=== PATIENT | female | born 1990 | race Caucasian/White ===

== ENCOUNTER 2020-01-21 05:31 | Inpatient (IN) | payer MEDICAID ==
[2020-01-21 06:04] VITALS: BMI 28.1
[2020-01-21 06:45] LABS: Amnisure Test RUPTURE DETECTED (No Rupture)
[2020-01-21 06:47] LABS: Amnisure Internal Control QC ACCEPTABLE (ACCEPTABLE)
[2020-01-21] MEDS ORDERED: Acetaminophen 500 MG TAB PO PRN (06:54)
[2020-01-21] MEDS ORDERED: Lidocaine 1% (PF) 30 ML VIAL SC PRN ×2 (06:54→08:26)
[2020-01-21] MEDS ORDERED: Butorphanol Tartrate 1 MG/ML VIAL SLOW IVP PRN (06:54)
[2020-01-21] MEDS ORDERED: Misoprostol 200 MCG TAB PR PRN (06:54)
[2020-01-21] MEDS ORDERED: HYDROcodone/Acetaminophen 5/325 mg Tablet PO PRN ×3 (06:54→16:27)
[2020-01-21] MEDS ORDERED: Ibuprofen 800 MG TAB PO PRN (06:54)
[2020-01-21] MEDS ORDERED: Ondansetron PF 4 MG/2 ML Vial IVP PRN ×3 (06:54→16:27)
[2020-01-21] MEDS ORDERED: hydrALAZINE 20 MG/ML VIAL SLOW IVP PRN ×2 (06:54→16:27)
[2020-01-21] MEDS ORDERED: Carboprost 250 MCG/ML AMP IM PRN (06:54)
[2020-01-21] MEDS ORDERED: Diphenoxylate HCl/Atropine Tablet PO PRN ×2 (06:54)
[2020-01-21] MEDS ORDERED: Promethazine HCl 25 MG/ML VIAL IM PRN ×3 (06:54→16:27)
[2020-01-21] MEDS ORDERED: Methylergonovine 0.2 MG/ML VIAL IM PRN (06:54)
[2020-01-21] MEDS ORDERED: NS w/ Oxytocin 10 units 500 ML ONE (07:22)
[2020-01-21 07:36] LABS: Mean Corpuscular HGB CONC 33.1 g/dL (32.0-36.0); Mean Corpuscular Hemoglobin 29.3 pg (27.0-31.0); Mean Corpuscular Volume 88.4 fL (78.0-98.0); Mean Platelet Volume 8.7 fL (7.4-10.4); Platelet Count 266 thou/uL (130-400); RBC Distribution Width 11.9 % (11.5-14.5); Red Blood Cell (RBC) Count 3.74 mill/uL (4.20-5.40); White Blood Cell (WBC) Count 11.5 thou/uL (4.8-10.8)
[2020-01-21 08:15] LABS: HBSAg Index 0.17 S/CO (0-0.99); Hep B Surf Ag Non-Reactive S/CO (NonReactive); Syphilis Antibody Nonreactive (Nonreactive); Syphilis Antibody Index 0.03 S/CO (<1.00 Non-Reactive)
[2020-01-21] MEDS ORDERED: NS / Oxytocin 40 units/1000ml 1,000 ML IV PRN (08:26)
[2020-01-21] MEDS: Lactated Ringer's 1,000 ML IV SCH ×2 (08:26→17:28)
[2020-01-21] MEDS ORDERED: NS w/ Oxytocin 10 units 500 ML IV SCH (08:30)
[2020-01-21] MEDS ORDERED: Fentanyl 4 mcg/Bup 0.1% Cadd 100 ML ONE (08:42)
[2020-01-21] MEDS ORDERED: Naloxone HCl 0.4 mg/ml Vial IVP PRN ×2 (09:38)
[2020-01-21] MEDS ORDERED: EPHEDRINE 25 MG/5 ML SYRINGE SLOW IVP PRN (09:38)
[2020-01-21] MEDS ORDERED: Acetaminophen 325 MG TAB PO PRN (09:38)
[2020-01-21] MEDS ORDERED: Lactated Ringer's 500 ML IV PRN (09:38)
[2020-01-21] MEDS ORDERED: diphenhydrAMINE 50 MG/ML VIAL IVP PRN (09:38)
[2020-01-21] MEDS ORDERED: Communication Order-Pharmacy FS PRN (09:45)
[2020-01-21] MEDS ORDERED: Fentanyl 4 mcg/Bupivacaine 0.1% Cassette 100 ML EPIDURAL SCH (09:45)
[2020-01-21] MEDS ORDERED: Bupivacaine/Epinephrine 0.25% 30 ML VIAL ONE (11:31)
[2020-01-21] MEDS: NS / Oxytocin 40 units/1000ml 1,000 ML IV PRN ×2 (13:54→15:03)
--- NOTE | 2020-01-21 14:27 | DN ---
DATE OF PROCEDURE: 01/21/2020 PREOPERATIVE DIAGNOSES: Spontaneous labor, 38 to 39 weeks gestation, group B Streptococcus negative, G2, P1. POSTOPERATIVE DIAGNOSES: Spontaneous labor, 38 to 39 weeks gestation, group B Streptococcus negative, G2, P1. PROCEDURES PERFORMED: Spontaneous vaginal delivery, second-degree midline laceration. ANESTHESIA: Epidural. QBL: Pending. DRAINS: Bee to gravity. COMPLICATIONS: None. FINDINGS: 1. Vigorous female infant at 1349 hours, 8 and 9 Apgars, weight pending. 2. Second-degree midline laceration repaired with 2-0 chromic. 3. Correct counts at the end the procedure. DISPOSITION: Recovery room in good condition. DESCRIPTION OF PROCEDURE: The patient had presented in active labor and progressed to complete-complete at approximately 1335 hours. After pushing about 4 to 5 times and with some [id number] variable decelerations, the infant was at the perineum. The patient delivered spontaneously, occiput anterior, single nuchal cord x1. The was placed on the maternal abdomen after delayed cord clamping was accomplished. Cord blood sample obtained. The placenta was delivered spontaneously. Several small first-degree lacerations and a second-degree midline laceration were noted in the vagina and these were rendered hemostatic. Fundus was firm. Counts were correct and the patient was entered into routine care. Job ID: [id number]
[2020-01-21] MEDS ORDERED: Bisacodyl 10 MG SUPP PR PRN (16:27)
[2020-01-21] MEDS ORDERED: Preparation H Ointment 28 GM TUBE PR PRN (16:27)
[2020-01-21] MEDS ORDERED: Benzocaine-Menthol 82.5 ML CAN TOP PRN (16:27)
[2020-01-21] MEDS ORDERED: Zolpidem Tartrate 5 MG TAB PO PRN (16:27)
[2020-01-21] MEDS ORDERED: Lanolin Ointment 7 GM TUBE TOP PRN (16:27)
[2020-01-21] MEDS ORDERED: NS / Oxytocin 40 units/1000ml 1,000 ML IV SCH (16:27)
[2020-01-21] MEDS ORDERED: diphenhydrAMINE 25 MG CAP PO PRN (16:27)
[2020-01-21] MEDS ORDERED: Milk Of Magnesia 30 ML UDCUP PO PRN (16:27)
[2020-01-21] MEDS: Ibuprofen 800 MG TAB PO SCH (17:11)
[2020-01-21] MEDS: Ferrous Sulfate 325 MG TAB PO SCH (17:25)
[2020-01-21] MEDS: Docusate Calcium (SURFAK) 240 MG CAP PO SCH (22:26)
[2020-01-21] MEDS: HYDROcodone/Acetaminophen 5/325 mg Tablet PO PRN (22:46)
[2020-01-22] MEDS: Ibuprofen 800 MG TAB PO SCH ×2 (05:35→13:31)
[2020-01-22] MEDS: Ferrous Sulfate 325 MG TAB PO SCH (08:47)
[2020-01-22] MEDS: Docusate Calcium (SURFAK) 240 MG CAP PO SCH (08:49)
[2020-01-22] MEDS ORDERED: Adacel (T-DAP) 0.5 ML SYRINGE IM ONE (09:00)
[2020-01-22] MEDS ORDERED: Prenatal Vitamin 1 TAB PO SCH (09:00)
[2020-01-22 11:50] VITALS: BP 123/81; TEMP 98.8
[2020-01-22] MEDS: HYDROcodone/Acetaminophen 5/325 mg Tablet PO PRN (12:37)
== END 2020-01-22 16:41 | disposition home or self-care (01) | DRG 807 ==
LOC: L&D/OP 05:31 → L&D 06:54 → 3SE 17:07
PROVIDERS: ADMIT Obstetrics & Gynecology; ATTEND Obstetrics & Gynecology
PROC: 10E0XZZ Delivery of Products of Conception, External Approach (ICD-10-PCS; principal; 2020-01-21)
PROC: 0KQM0ZZ Repair Perineum Muscle, Open Approach (ICD-10-PCS; 2020-01-21)
DX: O76 Abnormality in fetal heart rate and rhythm complicating labor and delivery (principal); Z37.0 Single live birth; Z3A.38 38 weeks gestation of pregnancy; O70.1 Second degree perineal laceration during delivery; O69.81X0 Labor and delivery complicated by cord around neck, without compression, not applicable or unspecified
CPT/HCPCS: 36415; 51702; 84112; 85027; 85461; 86780; 86850; 86870; 86900; 86901; 87340; 90384; 96372; 99285; J2405; J2590